=== PATIENT | male | born 2000 | race Caucasian/White ===

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

== ENCOUNTER → 2023-05-17 | Outpatient (REF) | payer OTHER | LOC: M LAB REF 12:07 | PROVIDERS: ATTEND Surgery | DX: L72.0 Epidermal cyst (principal) ==

== ENCOUNTER 2023-09-01 11:35 | Emergency (ER) | payer OTHER ==
[~2023-09-01] VITALS: Ht 188 cm; Wt 107.0 kg
[2023-09-01 13:54] VITALS: BP 132/83; TEMP 98.9; O2SAT 96
== END 2023-09-01 14:13 | disposition home or self-care (01) ==
LOC: M ED 11:35
DX: R09.A2 Foreign body sensation, throat (principal); F17.290 Nicotine dependence, other tobacco product, uncomplicated